=== PATIENT | male | born 2000 | race African-American/Black ===

== ENCOUNTER 2025-07-06 05:25 | Emergency (ER) | payer BC, OTHER ==
[~2025-07-06] VITALS: Ht 175.3 cm; Wt 141.0 kg
[2025-07-06 05:40] VITALS: O2SAT 99
[2025-07-06 07:13] VITALS: BP 150/107; PULSE 78; RESP 18; TEMP 36.8; O2SAT 98
== END 2025-07-06 07:17 | disposition home or self-care (01) ==
LOC: ER 05:25
DX: S91.312A Laceration without foreign body, left foot, initial encounter (principal); W25.XXXA Contact with sharp glass, initial encounter; Y93.89 Activity, other specified; Y92.89 Other specified places as the place of occurrence of the external cause; Y99.8 Other external cause status
CPT/HCPCS: 73630; 99283